=== PATIENT | male | born 1980 | race African-American/Black ===

== ENCOUNTER 2022-05-06 19:12 | Emergency (ER) | payer SELFPAY ==
[~2022-05-06] VITALS: Ht 180.3 cm; Wt 34.4 kg
--- NOTE | 2022-05-06 19:37 | ED GU-Female ---
General Chief Complaint: - Reproductive Stated Complaint: CHECHED FOR VD Source: patient Exam Limitations: no limitations History of Present Illness Date Seen by Provider: May 06, 2022 Time Seen by Provider: 19:36 Allergies and Home Medications Allergies Coded Allergies: No Known Drug Allergies (Unverified , 05/06/22) Physical Exam Vital Signs Capillary Refill : Height, Weight, BMI Height: '" Weight: lbs. oz. kg; BMI Method: Progress/Results/Core Measures Suspected Sepsis SIRS Temperature: Pulse: Respiratory Rate: Blood Pressure / Mean: Results/Orders Lab Results Laboratory Tests Test 05/06/22 19:49 Range/Units Urine Color YELLOW Urine Clarity CLOUDY Urine pH 7.5 5-9 Urine Specific [place] 1.020 1.016-1.022 Urine Protein 1+ H NEGATIVE Urine Glucose (UA) 1+ H NEGATIVE Urine Ketones NEGATIVE NEGATIVE Urine Nitrite NEGATIVE NEGATIVE Urine Bilirubin NEGATIVE NEGATIVE Urine Urobilinogen 0.2 < = 1.0 MG/DL Urine Leukocyte Esterase 2+ H NEGATIVE Urine RBC (Auto) TRACE-I H NEGATIVE Urine RBC NONE /HPF Urine WBC 25-50 H /HPF Urine Squamous Epithelial Cells NONE /HPF Urine Renal Epithelial Cells NONE /HPF Urine Crystals NONE /LPF Urine Bacteria NEGATIVE /HPF Urine Casts NONE /LPF Urine Mucus NEGATIVE /LPF Urine Culture Indicated NO My Orders Orders - EDWARD HERNANDEZ APRN Genital Culture (05/06/22 19:33) Chlamydia Trachomatis Urine (05/06/22 19:33) Neis Sonu Dna Urine Test (05/06/22 19:33) Ua Culture If Indicated (05/06/22 19:33) Syphilis Antibody Screen (05/06/22 19:33) Wet Prep (05/06/22 19:33) Azithromycin Tablet (Zithromax Tablet) (05/06/22 20:45) Ceftriaxone (Rocephin) (05/06/22 20:45) Lidocaine 1% Inj 20 Ml (Xylocaine 1% Inj (05/06/22 20:45) Metronidazole Tablet (Flagyl Tablet) (05/06/22 21:00) Vital Signs/I&O Capillary Refill : Departure Impression Primary Impression: Penile discharge Disposition: 01 HOME, SELF-CARE Condition: Stable Departure-Patient Inst. Decision time for Depature: 20:49 Referrals: NO,LOCAL PHYSICIAN (PCP/Family) Primary Care Physician Patient Instructions: Trichomoniasis (DC), STD Prevention Add. Discharge Instructions: Plan: 1. We will notify you via telephone if your labs are positive for any additional STI and require any additional treatment. 2. Return for any new, concerning, or worsening symptoms. All discharge instructions reviewed with patient and/or family. Voiced understanding. EDWARD HERNANDEZ FILM SOUND ENGINEER May 06, 2022 19:36
[2022-05-06 19:55] LABS: BILIRUBIN,URINE NEGATIVE (NEGATIVE); CLARITY,URINE CLOUDY; COLOR,URINE YELLOW; GLUCOSE, URINE (UA) 1+ (NEGATIVE); KETONES,URINE NEGATIVE (NEGATIVE); LEUKOCYTE ESTERASE ,URINE 2+ (NEGATIVE); NITRITE,URINE NEGATIVE (NEGATIVE); PH,URINE 7.5 (5-9); PROTEIN,URINE 1+ (NEGATIVE)
[2022-05-06 20:00] LABS: BACTERIA,URINE NEGATIVE /HPF; WBC,URINE 25-50 /HPF
[2022-05-06] MEDS ORDERED: AZITHROMYCIN 250 MG TAB (ZITHROMAX) PO ONE (20:45)
[2022-05-06] MEDS ORDERED: LIDOCAINE 1% INJ 20 ML VIAL INJ ONE (20:45)
[2022-05-06] MEDS ORDERED: cefTRIAXone 250 MG/2.5 ML ML IM ONE (20:45)
[2022-05-06] MEDS ORDERED: metroNIDAZOLE 500 MG (FLAGYL) TAB PO ONE (21:00)
[2022-05-06 21:08] VITALS: BP 118/79
== END 2022-05-06 21:08 | disposition home or self-care (01) ==
LOC: ER 19:15
DX: R36.9 Urethral discharge, unspecified (principal)
CPT/HCPCS: 36415; 81000; 87070; 87205; 87210; 87491; 87591; 99284

== ENCOUNTER 2022-05-28 15:23 | Emergency (ER) | payer SELFPAY ==
[~2022-05-28] VITALS: Ht 178 cm; Wt 63.5 kg
[2022-05-28] MEDS ORDERED: ONDANSETRON 4 MG/2 ML (SDV) Z0FRAN ONE (15:43)
[2022-05-28] MEDS ORDERED: fentaNYL INJ 100 MCG/2 ML AMP ONE (15:44)
--- NOTE | 2022-05-28 15:55 | ED GI ---
General Chief Complaint: Abdominal/GI Problems Stated Complaint: VOMITING Source of Information: Patient, EMS Exam Limitations: No Limitations (YOVANI JASON MD) History of Present Illness Date Seen by Provider: May 28, 2022 Time Seen by Provider: 15:32 Initial Comments 41-year-old male presents to the emergency room with a chief complaint of nausea and vomiting all day long (onset in the middle of the night). He does not really recall any abnormal foods. No sick contacts. He denies any alcohol intake in the last 24 hours. He is not having diarrhea and denies any black or bloody stools. Has urinated today. Family friend at the bedside states that he attempted to eat a peanut butter and jelly sandwich and some grapes today but those were vomited up. Family friend also states that he actually vomited up pieter blood earlier today. He also drink some body armor's but he vomited that as well. He is very thirsty. He is not a diabetic. No fevers or chills. Has never had anything quite like this before. No prior surgeries on his abdomen. Had a bowel movement this morning. He did smoke some marijuana this morning. He lives in [place]. He has a history of hypertension and takes lisinopril, reportedly he took that this morning. All other review of systems reviewed and negative except as stated Timing/Duration: 4-6 Hours Severity/Quality: Severe, Aching, Burning, Cramping Location: Epigastric, Generalized Abdomen Radiation: No Radiation Activities at Onset: None Modifying Factors: Improves With Vomiting Associated Symptoms: Nausea/Vomiting (YOVANI JASON MD) Allergies and Home Medications Allergies Coded Allergies: No Known Drug Allergies (Unverified , 05/28/22) Patient Home Medication List Home Medication List Reviewed: Yes (YOVANI JASON MD) Metoclopramide HCl (Reglan) 10 Mg Tablet, 10 MG PO Q6H Prescribed by: SAUL WHITE on 05/28/221914 Ondansetron (Ondansetron Odt) 8 Mg Tab.rapdis, 8 MG PO Q6H Prescribed by: SAUL WHITE on 05/28/221914 Pantoprazole Sodium (Protonix) 40 Mg Tablet.dr, 40 MG PO DAILY Prescribed by: SAUL WHITE on 05/28/221914 Review of Systems Review of Systems Constitutional: see HPI EENTM: No Symptoms Reported Respiratory: No Symptoms Reported Cardiovascular: No Symptoms Reported Gastrointestinal: Abdominal Pain, Nausea, Vomiting Genitourinary: No Symptoms Reported Musculoskeletal: no symptoms reported Skin: no symptoms reported (YOVANI JASON MD) All Other Systems Reviewed Negative Unless Noted: Yes (YOVANI JASON MD) Physical Exam Vital Signs Vital Signs - First Documented 05/28/22 15:23 Temp 36.9 Pulse 99 Resp 20 B/P (MAP) 169/135 (146) (SAUL WHITE DO) Vital Signs Capillary Refill : (YOVANI JASON MD) Height/Weight/BMI Height: '" Weight: lbs. oz. kg; BMI Method: General Appearance: WD/WN, moderate distress HEENT: PERRL/EOMI Neck: normal inspection Respiratory: lungs clear, normal breath sounds, no respiratory distress, no accessory muscle use Cardiovascular: regular rate, rhythm Gastrointestinal: non tender, soft, no pulsatile mass, abnormal bowel sounds (quiet) Extremities: normal range of motion, non-tender, normal inspection, no pedal edema, normal capillary refill Neurologic/Psychiatric: no motor/sensory deficits, alert, oriented x 3 Skin: normal color, warm/dry (YOVANI JASON MD) Progress/Results/Core Measures Results/Orders Lab Results Laboratory Tests Test 05/28/22 16:05 05/28/22 19:02 Range/Units White Blood Count 17.2 H 4.3-11.0 10^3/uL Red Blood Count 4.75 4.30-5.52 10^6/uL Hemoglobin 13.0 L 13.3-17.7 g/dL Hematocrit 39 L 40-54 % Mean Corpuscular Volume 82 80-99 fL Mean Corpuscular Hemoglobin 27 25-34 pg Mean Corpuscular Hemoglobin Concent 33 32-36 g/dL Red Cell Distribution Width 14.6 H 10.0-14.5 % Platelet Count 299 130-400 10^3/uL Mean Platelet Volume 9.9 9.0-12.2 fL Immature Granulocyte % (Auto) 1 % Neutrophils (%) (Auto) 86 H 42-75 % Lymphocytes (%) (Auto) 9 L 12-44 % Monocytes (%) (Auto) 4 0-12 % Eosinophils (%) (Auto) 0 0-10 % Basophils (%) (Auto) 1 0-10 % Neutrophils # (Auto) 14.7 H 1.8-7.8 10^3/uL Lymphocytes # (Auto) 1.6 1.0-4.0 10^3/uL Monocytes # (Auto) 0.6 0.0-1.0 10^3/uL Eosinophils # (Auto) 0.0 0.0-0.3 10^3/uL Basophils # (Auto) 0.1 0.0-0.1 10^3/uL Immature Granulocyte # (Auto) 0.1 0.0-0.1 10^3/uL Neutrophils % (Manual) 87 % Lymphocytes % (Manual) 11 % Monocytes % (Manual) 1 % Band Neutrophils 1 % Blood Morphology Comment NORMAL Prothrombin Time 12.0 L 12.2-14.7 SEC INR Comment 0.9 0.8-1.4 Activated Partial Thromboplast Time 30 24-35 SEC Sodium Level 139 135-145 MMOL/L Potassium Level 3.7 3.6-5.0 MMOL/L Chloride Level 100 98-107 MMOL/L Carbon Dioxide Level 26 21-32 MMOL/L Anion Gap 13 5-14 MMOL/L Blood Urea Nitrogen 10 7-18 MG/DL Creatinine 0.82 0.60-1.30 MG/DL Estimat Glomerular Filtration Rate 114 BUN/Creatinine Ratio 12 Glucose Level 189 H 70-105 MG/DL Calcium Level 9.7 8.5-10.1 MG/DL Corrected Calcium 9.3 8.5-10.1 MG/DL Total Bilirubin 0.5 0.1-1.0 MG/DL Aspartate Amino Transf (AST/SGOT) 26 5-34 U/L Alanine Aminotransferase (ALT/SGPT) 21 0-55 U/L Alkaline Phosphatase 71 40-136 U/L Total Protein 7.7 6.4-8.2 GM/DL Albumin 4.5 3.2-4.5 GM/DL Lipase 10 8-78 U/L Serum Alcohol < 10 <10 MG/DL Urine Color YELLOW Urine Clarity CLEAR Urine pH 7.5 5-9 Urine Specific [place] 1.020 1.016-1.022 Urine Protein 2+ H NEGATIVE Urine Glucose (UA) 2+ H NEGATIVE Urine Ketones 2+ H NEGATIVE Urine Nitrite NEGATIVE NEGATIVE Urine Bilirubin NEGATIVE NEGATIVE Urine Urobilinogen 0.2 < = 1.0 MG/DL Urine Leukocyte Esterase NEGATIVE NEGATIVE Urine RBC (Auto) 2+ H NEGATIVE Urine RBC 25-50 H /HPF Urine WBC RARE /HPF Urine Squamous Epithelial Cells RARE /HPF Urine Crystals NONE /LPF Urine Bacteria TRACE /HPF Urine Casts NONE /LPF Urine Mucus NEGATIVE /LPF Urine Yeast FEW H /HPF Urine Culture Indicated NO Urine Opiates Screen NEGATIVE NEGATIVE Urine Oxycodone Screen NEGATIVE NEGATIVE Urine Methadone Screen NEGATIVE NEGATIVE Urine Propoxyphene Screen NEGATIVE NEGATIVE Urine Barbiturates Screen NEGATIVE NEGATIVE Ur Tricyclic Antidepressants Screen NEGATIVE NEGATIVE Urine Phencyclidine Screen NEGATIVE NEGATIVE Urine Amphetamines Screen NEGATIVE NEGATIVE Urine Methamphetamines Screen NEGATIVE NEGATIVE Urine Benzodiazepines Screen NEGATIVE NEGATIVE Urine Cocaine Screen NEGATIVE NEGATIVE Urine Cannabinoids Screen POSITIVE H NEGATIVE (SAUL WHITE DO) My Orders Orders - SAUL WHITE DO Metoclopramide Injection (Reglan Injecti (05/28/22 19:00) Diphenhydramine Injection (Benadryl Inje (05/28/22 19:00) Hydralazine Injection (Apresoline Inject (05/28/22 19:00) Drug Screen Stat (Urine) (05/28/22 19:05) Ua Culture If Indicated (05/28/22 19:05) Droperidol Inj (Ed Only) (Inapsine Inj ( (05/28/22 19:30) Hydralazine Injection (Apresoline Inject (05/28/22 19:30) (SAUL WHITE DO) Medications Given in ED Current Medications Medications Dose Ordered Sig/Irina Route Start Time Stop Time Status Last Admin Dose Admin Diphenhydramine HCl 25 mg ONCE ONCE IVP 05/28/22 19:00 05/28/22 19:01 DC 05/28/22 19:07 25 MG Droperidol 2.5 mg ONCE ONCE IV 05/28/22 19:30 05/28/22 19:31 DC 05/28/22 19:36 2.5 MG Fentanyl Citrate 100 mcg STK-MED ONCE .ROUTE 05/28/22 15:44 05/28/22 15:47 DC 05/28/22 15:48 50 MCG Hydralazine HCl 10 mg ONCE ONCE IV 05/28/22 19:00 05/28/22 19:01 DC 05/28/22 19:07 10 MG Hydralazine HCl 10 mg ONCE ONCE IV 05/28/22 19:30 05/28/22 19:31 DC 05/28/22 19:36 10 MG Labetalol HCl 20 mg ONCE ONCE IV 05/28/22 17:30 05/28/22 17:31 DC 05/28/22 17:59 20 MG Metoclopramide HCl 10 mg ONCE ONCE IVP 05/28/22 19:00 05/28/22 19:01 DC 05/28/22 19:07 10 MG Ondansetron HCl 4 mg STK-MED ONCE .ROUTE 05/28/22 15:43 05/28/22 15:47 DC 05/28/22 15:47 4 MG Pantoprazole 40 mg ONCE ONCE IV 05/28/22 16:00 05/28/22 16:01 DC 05/28/22 16:05 40 MG Promethazine HCl 25 mg ONCE ONCE IVP 05/28/22 17:45 05/28/22 17:46 DC 05/28/22 18:05 25 MG (SAUL WHITE DO) Vital Signs/I&O 05/28/22 15:23 Temp 36.9 Pulse 99 Resp 20 B/P (MAP) 169/135 (146) (SAUL WHITE DO) Progress Progress Note : Time: 17:42 Progress Note Reevaluated after labs with leukocytosis and CT which is normal. He is complaining of feeling incredibly nauseous still. He has continued to vomit up a little bit of what looks like coffee-ground emesis. He is quite hypertensive now with a diastolic in the 120s. Labetalol was ordered. I am ordering some more fluids and Phenergan. His exam is benign, soft and nontender. He has never been diagnosed with an ulcer before. He is not quite as agitated as he was and is a little bit more alert than he was earlier. Hemoglobin is currently normal. Chemistry is normal. (YOVANI JASON MD) Progress Note : Progress Note 1800--ASSUMED CARE FROM DR. JASON, AT SHIFT CHANGE. LABETALOL, PHENERGAN AND MORE IV FLUIDS HAVE BEEN ORDERED. 1840--NAUSEA IS IMPROVED WITH PHENERGAN, PT IS RESTING QUIETLY AND HAS NO COMPLAINTS. . BP STILL ELEVATED AT THIS TIME 1845--NOW C/O NAUSEA AND DRY HEAVES, ADDITIONAL MEDICATIONS ORDERED 1899--PT HAS AMBULATED TO AND FROM BATHROOM ON HIS OWN WITHOUT ANY DIFFICULTY. NO NAUSEA AT THIS TIME 1919--PT WITH HARSH, FORCED RETCHING, AND BP STILL ELEVATED. ADDITIONAL MEDICATIONS ORDERED. 1954--PT RESTING, NO NAUSEA OR RETCHING AT THIS TIME. NAUSEA IMPROVED AND BP DOWN AT TIME OF DISMISSAL (SAUL WHITE DO) Diagnostic Imaging Diagonstic Imaging: CT Comments [facility] [place] NAME: BURKE KATZ [facility] REC#: [id number] PT STATUS: REG ER : 1980 PHYSICIAN: YOVANI JASON MD ADMIT DATE: 05/28/22/ER Draft Date of Exam:05/28/22 CT ABDOMEN/PELVIS WO EXAMINATION: CT abdomen and pelvis without contrast. TECHNIQUE: Multiple contiguous axial images were obtained through the abdomen and pelvis without the use of intravenous contrast. All CT scans use one or more of the following dose optimizing techniques: automated exposure control, MA and/or KvP adjustment based on patient size and exam type or iterative reconstruction. HISTORY: Vomiting and hematemesis COMPARISON: None available. FINDINGS: Limited views of the lower thorax are unremarkable. The liver is normal without focal lesion. There is no biliary ductal dilation. Gallbladder is normal. Pancreas is normal. Spleen is normal. Adrenal glands are normal. The kidneys are normal. There is no hydronephrosis. Urinary bladder is normal. Bowel is normal in caliber without obstruction or inflammation. No free fluid or air. No abdominal or pelvic lymphadenopathy. Aorta is normal in caliber without aneurysm. There are no suspicious osseus lesions. IMPRESSION: 1. No acute abnormality in the abdomen or pelvis. Dictated on workstation # [id number] Dict: 05/28/221714 Trans: 05/28/221716 CV [id number] Interpreted by: AMADO DIAZ MD Electronically signed by: (YOVANI JASON MD) Departure Impression Primary Impression: Nausea and vomiting Qualified Codes: K92.0 - Hematemesis Additional Impressions: High blood pressure Qualified Codes: I10 - Essential (primary) hypertension Hematemesis Qualified Codes: K92.0 - Hematemesis Marijuana use Disposition: 01 HOME, SELF-CARE Condition: Improved Departure-Patient Inst. Decision time for Depature: 19:57 (SAUL WHITE DO) Patient Instructions: DASH Diet, Gastritis (DC), High Blood Pressure ED, Nausea and Vomiting, Adult ED, Ulcer and Gastritis Diet Add. Discharge Instructions: HOME, REST TAKE YOUR REGULAR MEDICATIONS PRESCRIBED NO MARIJUANA FOLLOW UP WITH YOUR REGULAR DR THIS WEEK FOR FURTHER CARE, RETURN TO ER IF SYMPTOMS WORSEN All discharge instructions reviewed with patient and/or family. Voiced understanding. Scripts Pantoprazole Sodium (Protonix) 40 Mg Tablet. 40 MG PO DAILY, #15 TAB Prov: SAUL WHITE DO 05/28/22 Metoclopramide HCl (Reglan) 10 Mg Tablet 10 MG PO Q6H for Nausea/Vomiting, #10 TAB Prov: SAUL WHITE DO 05/28/22 Ondansetron (Ondansetron Odt) 8 Mg Tab.rapdis 8 MG PO Q6H, #10 TAB Prov: SAUL WHITE DO 05/28/22 YOVANI JASON MD May 28, 2022 15:55 SAUL WHITE DO May 28, 2022 18:04
[2022-05-28] MEDS ORDERED: ONDANSETRON 4 MG/2 ML (SDV) Z0FRAN IVP ONE (16:00)
[2022-05-28] MEDS ORDERED: NS IV 1000 ML 1,000 ML IV SCH ×2 (16:00→17:45)
[2022-05-28] MEDS ORDERED: fentaNYL INJ 100 MCG/2 ML AMP IVP ONE (16:00)
[2022-05-28] MEDS ORDERED: PANTOPRAZOLE 40 MG (PROTONIX) VIAL IV ONE (16:00)
[2022-05-28 16:16] LABS: BASOPHILS # (AUTO) 0.1 10^3/uL (0.0-0.1); BASOPHILS % (AUTO) 1 % (0-10); EOSINOPHILS % (AUTO) 0 % (0-10); HEMATOCRIT 39 % (40-54); LYMPHOCYTES # (AUTO) 1.6 10^3/uL (1.0-4.0); LYMPHOCYTES % (AUTO) 9 % (12-44); MEAN CORPUSCULAR HEMOGLOBIN 27 pg (25-34); MEAN CORPUSCULAR HGB CONC 33 g/dL (32-36); MEAN CORPUSCULAR VOLUME 82 fL (80-99); MEAN PLATELET VOLUME 9.9 fL (9.0-12.2); MONOCYTES # (AUTO) 0.6 10^3/uL (0.0-1.0); MONOCYTES % (AUTO) 4 % (0-12); NEUTROPHILS # (AUTO) 14.7 10^3/uL (1.8-7.8); NEUTROPHILS % (AUTO) 86 % (42-75); PLATELET COUNT 299 10^3/uL (130-400); WHITE BLOOD COUNT 17.2 10^3/uL (4.3-11.0)
[2022-05-28 16:29] LABS: ALBUMIN 4.5 GM/DL (3.2-4.5); CHLORIDE 100 MMOL/L (98-107); POTASSIUM 3.7 MMOL/L (3.6-5.0); SODIUM 139 MMOL/L (135-145)
[2022-05-28 16:31] LABS: CALCIUM 9.7 MG/DL (8.5-10.1)
[2022-05-28 16:32] LABS: GLUCOSE 189 MG/DL (70-105); TOTAL PROTEIN 7.7 GM/DL (6.4-8.2)
[2022-05-28 16:33] LABS: CARBON DIOXIDE 26 MMOL/L (21-32)
[2022-05-28 16:34] LABS: BILIRUBIN,TOTAL 0.5 MG/DL (0.1-1.0)
[2022-05-28 16:35] LABS: ALKALINE PHOSPHATASE 71 U/L (40-136)
[2022-05-28 16:36] LABS: CREATININE SERUM 0.82 MG/DL (0.60-1.30); GFR ESTIMATED 114
[2022-05-28 16:37] LABS: BUN/CREATININE RATIO 12
[2022-05-28 16:38] LABS: ALANINE AMINOTRANSFERASE 21 U/L (0-55)
[2022-05-28 16:39] LABS: INR 0.9 (0.8-1.4); LIPASE 10 U/L (8-78)
[2022-05-28 16:56] LABS: BAND NEUTROPHILS 1 %; LYMPHOCYTES % (MANUAL) 11 %; MONOCYTES % (MANUAL) 1 %; NEUTROPHILS % (MANUAL) 87 %; RBC MORPH NORMAL
--- NOTE | 2022-05-28 17:18 | Diagnostic Imaging Report ---
EXAMINATION: CT abdomen and pelvis without contrast. TECHNIQUE: Multiple contiguous axial images were obtained through the abdomen and pelvis without the use of intravenous contrast. All CT scans use one or more of the following dose optimizing techniques: automated exposure control, MA and/or KvP adjustment based on patient size and exam type or iterative reconstruction. HISTORY: Vomiting and hematemesis COMPARISON: None available. FINDINGS: Limited views of the lower thorax are unremarkable. The liver is normal without focal lesion. There is no biliary ductal dilation. Gallbladder is normal. Pancreas is normal. Spleen is normal. Adrenal glands are normal. The kidneys are normal. There is no hydronephrosis. Urinary bladder is normal. Bowel is normal in caliber without obstruction or inflammation. No free fluid or air. No abdominal or pelvic lymphadenopathy. Aorta is normal in caliber without aneurysm. There are no suspicious osseus lesions. IMPRESSION: 1. No acute abnormality in the abdomen or pelvis. Dictated by: Dictated on workstation # [id number]
[2022-05-28] MEDS ORDERED: LABETALOL HCL 20 MG/4 ML VIAL IV ONE (17:30)
[2022-05-28] MEDS ORDERED: PROMETHAZINE INJ 25 MG/ML (PHENERGAN) AMP IVP ONE (17:45)
[2022-05-28] MEDS ORDERED: hydrALAZINE (APESOLINE) 20 MG/ML VIAL IV ONE ×2 (19:00→19:30)
[2022-05-28] MEDS ORDERED: diphenhydrAMINE 50 MG/ML INJ (BENADRYL) IVP ONE (19:00)
[2022-05-28] MEDS ORDERED: METOCLOPRAMIDE INJ 10 MG/2 ML (REGLAN) IVP ONE (19:00)
[2022-05-28 19:13] LABS: BILIRUBIN,URINE NEGATIVE (NEGATIVE); CLARITY,URINE CLEAR; COLOR,URINE YELLOW; GLUCOSE, URINE (UA) 2+ (NEGATIVE); KETONES,URINE 2+ (NEGATIVE); LEUKOCYTE ESTERASE ,URINE NEGATIVE (NEGATIVE); NITRITE,URINE NEGATIVE (NEGATIVE); PH,URINE 7.5 (5-9); PROTEIN,URINE 2+ (NEGATIVE)
[2022-05-28] MEDS ORDERED: METO-310 PO (19:15)
[2022-05-28] MEDS ORDERED: ONDA8TAB13 PO (19:15)
[2022-05-28] MEDS ORDERED: PANT40TA2 PO (19:15)
[2022-05-28 19:23] LABS: BACTERIA,URINE TRACE /HPF; RBC,URINE 25-50 /HPF; SQUAMOUS EPITHELIAL CELL,UR RARE /HPF; WBC,URINE RARE /HPF; YEAST,URINE FEW /HPF
[2022-05-28 19:29] LABS: AMPHETAMINE SCREEN, URINE NEGATIVE (NEGATIVE); BARBITURATE SCREEN URINE NEGATIVE (NEGATIVE); BENZODIAZEPINES SCREEN URINE NEGATIVE (NEGATIVE); CANNABINOID SCREEN, URINE POSITIVE (NEGATIVE); COCAINE SCREEN URINE NEGATIVE (NEGATIVE); METHADONE STAT NEGATIVE (NEGATIVE); OPIATE SCREEN URINE NEGATIVE (NEGATIVE); OXYCODONE STAT NEGATIVE (NEGATIVE); PROPOXYPHENE STAT NEGATIVE (NEGATIVE); TRICYCLIC ANTIDEPRESSANTS SCRE NEGATIVE (NEGATIVE)
[2022-05-28] MEDS ORDERED: DROPERIDOL 5 MG/2 ML (INAPSINE) ED ONLY! IV ONE (19:30)
[2022-05-28 20:13] VITALS: BP 174/119
== END 2022-05-28 20:14 | disposition home or self-care (01) ==
LOC: MERGE 15:39 → ER 15:39 → EDBD 15:39 → ER 20:14
DX: K92.0 Hematemesis (principal); I10 Essential (primary) hypertension; D72.829 Elevated white blood cell count, unspecified; F12.10 Cannabis abuse, uncomplicated; Z79.899 Other long term (current) drug therapy
CPT/HCPCS: 74176; 80053; 80306; 81000; 83690; 85007; 85027; 85610; 85730; G0480; 36415; 80320